=== PATIENT | female | born 1975 | race Two or more races ===

== ENCOUNTER 2020-04-08 03:29 | Emergency (ER) | payer SELFPAY ==
[~2020-04-08] VITALS: Ht 170.2 cm; Wt 54.4 kg
[2020-04-08 03:35] VITALS: BP 142/100
--- NOTE | 2020-04-08 03:35 | NUR ---
ED Nurse Note: Pt brought into ED from the street by SKYLER RA [id number] for behavioral complaint. Pt was found wandering in the street and per SKYLER, pt had a bystander call 911 for her. Pt has no medical complaint and denies pain, but states "I need help". She has hx of PTSD. Pt is aaox4, but not very cooperative with staff. She is ambulatory with steady gait. She denies drug or alcohol use tonight.
--- NOTE | 2020-04-08 03:35 | NUR ---
ED Nurse Note: Pt does not want to hurt herself or others. She is only requesting a ride home.
--- NOTE | 2020-04-08 03:36 | Emergency Room Report ---
History of Present Illness General Source: Patient Present Illness HPI This a 44-year-old female who claims she has no past medical history. She presents with chief complaint of weakness. Patient told the ambulance that she felt weak. She told me that she may have pneumonia because her lungs hurt. Patient was wearing a hospital paper shirt. I asked her where she got that from. She said that she was at a hospital in [place] yesterday. She claimed that she walked all the way from there to here. Now she wanted a ride to go to [place]. Patient denies any cough or congestion. No fever chills. She is not cooperative with questioning. Patient History Past Medical History: see triage record, old chart reviewed, psych hx Past Surgical History: none Pertinent Family History: none Social History: Denies: smoking Now: No Immunizations: other Reviewed Nursing Documentation: PMH: Agreed; PSxH: Agreed Review of Systems Eye: Denies: eye pain, blurred vision ENT: Denies: ear pain, nose congestion, throat swelling Respiratory: Denies: cough, shortness of breath Cardiovascular: Denies: chest pain, palpitations Gastrointestinal: Denies: abdominal pain, diarrhea, nausea, vomiting Musculoskeletal: Denies: back pain, joint pain Skin: Denies: rash Neurological: Denies: headache, numbness Endocrine: Denies: increased thirst, increased urine Hematologic/Lymphatic: Denies: easy bruising All Other Systems: negative except mentioned in HPI Physical Exam Vitals unremarkable Sp02 EP Interpretation: reviewed, normal General Appearance: well appearing, no apparent distress, alert Head: normocephalic, atraumatic Eyes: bilateral eye PERRL, bilateral eye EOMI ENT: hearing grossly normal, normal pharynx Neck: full range of motion, supple, no meningismus Respiratory: chest non-tender, lungs clear, normal breath sounds Cardiovascular #1: regular rate, rhythm, no murmur Gastrointestinal: normal bowel sounds, non tender, no mass, no organomegaly, no bruit, non-distended Musculoskeletal: back normal, normal range of motion, gait/station normal Psychiatric: mood/affect normal Medical Decision Making Diagnostic Impression: Primary Impression: Generalized weakness ER Course Patient presents with generalized weakness. I see no evidence of any issue. Lungs are clear. Oxygenation is 100% on room air. I see no evidence of pneumonia. She walking without any difficulty. She is eating drinking without any difficulty. She wanted a ride to [facility]. Explained to her that we cannot provide a personal ride to for her to go to [place]. Patient does not want to go to a long-term. Will discharge home. Status: unchanged Disposition: HOME, SELF-CARE Condition: Stable Additional Instructions: Follow-up with your doctor in 7 days. Return if symptoms worsen. Rogelio Godoy MD Apr 08, 2020 03:36
--- NOTE | 2020-04-08 03:38 | NUR ---
ED Nurse Note: TJ speaking with pt. She yelled "fk you doctor" to TJ. Pt is not being cooperative or complaint with care at this time.
--- NOTE | 2020-04-08 03:46 | NUR ---
ER DISCHARGE NOTE: Patient is cleared to be discharged per ERMD, pt is aox4, on room air, ERMD aware of pt HR and Ok'd to be DC. pt was given dc instructions. pt was able to verbalize understanding, pt id band removed. pt is able to ambulate with steady gait. pt took all belongings.
[2020-04-09] MEDS ORDERED: ZYPREXA5 MG ORAL (22:42)
== END 2020-04-08 03:55 | disposition home or self-care (01) ==
LOC: EDBD 03:29 → EMR 03:55
DX: R53.1 Weakness (principal)
CPT/HCPCS: 99282

== ENCOUNTER 2020-04-09 13:10 | Emergency (ER) | payer SELFPAY ==
[2020-04-09] VITALS (7 sets, daily range): BP systolic 106–137; BP diastolic 72–86
[~2020-04-09] VITALS: Ht 162.6 cm; Wt 68.0 kg
--- NOTE | 2020-04-09 13:10 | NUR ---
ED Nurse Note: Patient BIBA RA61 from a sidewalk due to behavioral complaint. Per EMS, pt was seen lying on the ground. Pt is awake and alert, uncooperative and talking non stop. Pt is resistive to care. Unable to obtain information from the pt. No SOB, on room air. Breathing even and unlabored. Pt placed on monitoring and evaluation advisor. ERPA at bedside.
[2020-04-09] MEDS ORDERED: DiphenhydrAMINE 50mg/ml Inj IM ONE (13:45)
[2020-04-09] MEDS ORDERED: Haloperidol 5mg/ml Inj ONE (13:45)
[2020-04-09] MEDS ORDERED: Haloperidol 5mg/ml Inj IM ONE (13:45)
[2020-04-09] MEDS ORDERED: LORazepam Inj 2mg/ml 1ml IM ONE (13:45)
--- NOTE | 2020-04-09 14:15 | NUR ---
ED Nurse Note: IV line established. Blood specimen collected and sent to lab.
[2020-04-09 14:28] LABS: BASOPHILS % (AUTO) 0.7 % (0.0-2.0); EOSINOPHILS % (AUTO) 0.3 % (0.0-3.0); HEMATOCRIT 35.2 % (37.0-47.0); HEMOGLOBIN 11.3 G/DL (12.0-16.0); LYMPHOCYTES % (AUTO) 9.8 % (20.0-45.0); MEAN CORPUSCULAR VOLUME 95 FL (80-99); NEUTROPHILS % (AUTO) 81.3 % (45.0-75.0); PLATELET COUNT 116 K/UL (150-450); RED BLOOD COUNT 3.69 M/UL (4.20-5.40); RED CELL DISTRIBUTION WIDTH 12.3 % (11.6-14.8); WHITE BLOOD COUNT 8.9 K/UL (4.8-10.8)
--- NOTE | 2020-04-09 14:28 | Emergency Room Report ---
History of Present Illness General Chief Complaint: Behavioral Complaint Source: EMS (Nadia Cordero) Present Illness HPI 29 YO female presents to the ED for ALOC. She is talking to herself only at a rapid pace. She has emotional lability. Tearful at times. She will not make eye contact no answer any questions. HPI and ROS are therefore limited. NO evidence of trauma. No open wounds or bleeding. Pt. was tachycardic in triage. (Nadia Cordero) Allergies: Coded Allergies: No Known Allergies (Unverified , 04/08/20) COVID-19 Screening Contact w/high risk pt: No Experienced COVID-19 symptoms?: No COVID-19 Testing performed IP COUNSEL: No (Nadia Cordero) Patient History Past Medical History: see triage record Past Surgical History: none Pertinent Family History: none Now: No Reviewed Nursing Documentation: PMH: Agreed; PSxH: Agreed (Nadia Cordero) Nursing Documentation-PMH Past Medical History: Deferred (Nadia Cordero) Review of Systems All Other Systems: limited (Nadia Cordero) Physical Exam Vital Signs Date Time Temp Pulse Resp B/P (MAP) Pulse Ox O2 Delivery O2 Flow Rate FiO2 04/09/20 13:04 98.1 112 16 137/84 (101) 98 Room Air Sp02 EP Interpretation: reviewed, normal General Appearance: no apparent distress, alert, GCS 15, non-toxic Head: normocephalic, atraumatic Eyes: bilateral eye normal inspection, bilateral eye PERRL ENT: hearing grossly normal, normal voice Neck: full range of motion Respiratory: chest non-tender, lungs clear, normal breath sounds, no wheezing, speaking full sentences Cardiovascular #1: regular rate, rhythm, normal capillary refill, tachycardia Gastrointestinal: normal bowel sounds, non tender, soft Musculoskeletal: back normal, normal range of motion, gait/station normal, non- tender Neurologic: alert, motor strength/tone normal, oriented x3, sensory intact, responsive, speech normal Psychiatric: judgement/insight normal Skin: no rash, normal color, other - no bruises, no hematomas, no open wounds or bleeding. (Nadia Cordero) Medical Decision Making PA Attestation Dr. Shaffer is my supervising Physician whom patient management has been discussed with. (Nadia Cordero) Diagnostic Impression: Primary Impression: Behavioral disorder ER Course 29 YO female presents to the ED for ALOC. She is talking to herself only at a rapid pace. She has emotional lability. Tearful at times. She will not make eye contact no answer any questions. HPI and ROS are therefore limited. NO evidence of trauma. No open wounds or bleeding. Pt. was tachycardic in triage. Pt is hyperactive, and has a very anxious and restless affect. Ddx considered but are not limited to OD, SI/HI, psychosis, UTI, intoxication just to name a few. Vital signs: are WNL, pt. is afebrile. H&PE are most consistent with behavioral/mental health issue ORDERS: -CBC, CMP: Unremarkable other than mild anemia and potassium of 3.4 -UA: negative for infection see results attached. -UDS: all negative -Salicylates and Acetaminophen - no acute intoxication. -Serum ETOH: no acute intoxication ED INTERVENTIONS: - Haldol 5mg IM -Ativan 2mg IM -Benadryl 50mg IM DISPOSITION: Pt. medically cleared for psychiatric evaluation and placement. PET Team Consult is ordered. Labs Test 04/09/20 14:15 04/09/20 14:58 White Blood Count 8.9 K/UL (4.8-10.8) Red Blood Count 3.69 M/UL (4.20-5.40) Hemoglobin 11.3 G/DL (12.0-16.0) Hematocrit 35.2 % (37.0-47.0) Mean Corpuscular Volume 95 FL (80-99) Mean Corpuscular Hemoglobin 30.5 PG (27.0-31.0) Mean Corpuscular Hemoglobin Concent 32.0 G/DL (32.0-36.0) Red Cell Distribution Width 12.3 % (11.6-14.8) Platelet Count 116 K/UL (150-450) Mean Platelet Volume 9.8 FL (6.5-10.1) Neutrophils (%) (Auto) 81.3 % (45.0-75.0) Lymphocytes (%) (Auto) 9.8 % (20.0-45.0) Monocytes (%) (Auto) 8.0 % (1.0-10.0) Eosinophils (%) (Auto) 0.3 % (0.0-3.0) Basophils (%) (Auto) 0.7 % (0.0-2.0) Sodium Level 142 MMOL/L (136-145) Potassium Level 3.4 MMOL/L (3.5-5.1) Chloride Level 105 MMOL/L (98-107) Carbon Dioxide Level 27 MMOL/L (21-32) Anion Gap 10 mmol/L (5-15) Blood Urea Nitrogen 17 mg/dL (7-18) Creatinine 0.7 MG/DL (0.55-1.30) Estimat Glomerular Filtration Rate > 60 mL/min (>60) Glucose Level 102 MG/DL (74-106) Calcium Level 9.0 MG/DL (8.5-10.1) Total Bilirubin 0.5 MG/DL (0.2-1.0) Aspartate Amino Transf (AST/SGOT) 62 U/L (15-37) Alanine Aminotransferase (ALT/SGPT) 47 U/L (12-78) Alkaline Phosphatase 54 U/L (46-116) Total Protein 7.3 G/DL (6.4-8.2) Albumin 3.8 G/DL (3.4-5.0) Globulin 3.5 g/dL Albumin/Globulin Ratio 1.1 (1.0-2.7) Salicylates Level 1.5 ug/mL (2.8-20) Acetaminophen Level < 2 MCG/ML (10-30) Serum Alcohol < 3 mg/dL Urine HCG, Qualitative Negative (NEGATIVE) Urine Opiates Screen Negative (NEGATIVE) Urine Barbiturates Screen Negative (NEGATIVE) Phencyclidine (PCP) Screen Negative (NEGATIVE) Urine Amphetamines Screen Negative (NEGATIVE) Urine Benzodiazepines Screen Negative (NEGATIVE) Urine Cocaine Screen Negative (NEGATIVE) Urine Marijuana (THC) Screen Negative (NEGATIVE) (Nadia Cordero) ER Course Patient was endorsed to me by Dr. Barros. Patient had been medicated earlier in the day and appears to be more appropriate in terms of behavior. Patient states that she feels better and wants to leave the hospital. She is not currently on a hold and does not appear to be responding to internal stimuli at this time. She is ambulatory without assistance and has a good plan for self- care. She does not appear to be danger to self or others. Does not appear to be holdable against her will at this time. Patient was advised outpatient psychiatric evaluation. This medical record is generated with [employer] medical technologist hematology software. There may be some medical technologist hematology discrepancies related to use of this software Labs Test 04/09/20 14:15 04/09/20 14:58 White Blood Count 8.9 K/UL (4.8-10.8) Red Blood Count 3.69 M/UL (4.20-5.40) Hemoglobin 11.3 G/DL (12.0-16.0) Hematocrit 35.2 % (37.0-47.0) Mean Corpuscular Volume 95 FL (80-99) Mean Corpuscular Hemoglobin 30.5 PG (27.0-31.0) Mean Corpuscular Hemoglobin Concent 32.0 G/DL (32.0-36.0) Red Cell Distribution Width 12.3 % (11.6-14.8) Platelet Count 116 K/UL (150-450) Mean Platelet Volume 9.8 FL (6.5-10.1) Neutrophils (%) (Auto) 81.3 % (45.0-75.0) Lymphocytes (%) (Auto) 9.8 % (20.0-45.0) Monocytes (%) (Auto) 8.0 % (1.0-10.0) Eosinophils (%) (Auto) 0.3 % (0.0-3.0) Basophils (%) (Auto) 0.7 % (0.0-2.0) Sodium Level 142 MMOL/L (136-145) Potassium Level 3.4 MMOL/L (3.5-5.1) Chloride Level 105 MMOL/L (98-107) Carbon Dioxide Level 27 MMOL/L (21-32) Anion Gap 10 mmol/L (5-15) Blood Urea Nitrogen 17 mg/dL (7-18) Creatinine 0.7 MG/DL (0.55-1.30) Estimat Glomerular Filtration Rate > 60 mL/min (>60) Glucose Level 102 MG/DL (74-106) Calcium Level 9.0 MG/DL (8.5-10.1) Total Bilirubin 0.5 MG/DL (0.2-1.0) Aspartate Amino Transf (AST/SGOT) 62 U/L (15-37) Alanine Aminotransferase (ALT/SGPT) 47 U/L (12-78) Alkaline Phosphatase 54 U/L (46-116) Total Protein 7.3 G/DL (6.4-8.2) Albumin 3.8 G/DL (3.4-5.0) Globulin 3.5 g/dL Albumin/Globulin Ratio 1.1 (1.0-2.7) Salicylates Level 1.5 ug/mL (2.8-20) Acetaminophen Level < 2 MCG/ML (10-30) Serum Alcohol < 3 mg/dL Urine HCG, Qualitative Negative (NEGATIVE) Urine Opiates Screen Negative (NEGATIVE) Urine Barbiturates Screen Negative (NEGATIVE) Phencyclidine (PCP) Screen Negative (NEGATIVE) Urine Amphetamines Screen Negative (NEGATIVE) Urine Benzodiazepines Screen Negative (NEGATIVE) Urine Cocaine Screen Negative (NEGATIVE) Urine Marijuana (THC) Screen Negative (NEGATIVE) (Ady Moseley MD) ER Course Patient signed out to me by ESTUARDO Choudhury pending reevaluation. Briefly, this a 44-year-old female brought in for evaluation of abnormal behavior. She was agitated, speaking rapidly, emotionally labile, responding to internal stimuli earlier. She was treated with Haldol Ativan, Benadryl and has been sleeping comfortably in the emergency department for the majority of my shift. She is now awake but remains groggy and will require further monitoring metabolization. Labs have returned within normal limits. Patient is not on a legal hold. She will be signed out to oncoming physician for reevaluation and ultimate disposition. (John Barros MD) EKG Diagnostic Results Rate: normal - 87 NSR Rhythm: NSR ST Segments: no acute changes Other Impression Prolonged QT , QTc of 493 ASA given to the pt in ED: No PA Scribe Text This Interpretation was scribed by ESTUARDO Cordero. (Nadia Cordero) Last Vital Signs Date Time Temp Pulse Resp B/P (MAP) Pulse Ox O2 Delivery O2 Flow Rate FiO2 04/09/20 13:10 112 16 Room Air 04/09/20 13:10 98.1 137/84 98 (Nadia Cordero) Status: improved (Ady Moseley MD) Disposition: HOME, SELF-CARE Condition: Stable Signed Out To: Dr. Barros (Nadia Cordero) Scripts Olanzapine* (ZYPREXA*) 5 Mg Tablet 5 MG ORAL DAILY, #14 TAB Prov: Ady Moseley MD 04/09/20 Referrals: NOT CHOSEN IPA/,REFERRING (PCP) Nadia Cordero Apr 09, 2020 14:28 Ady Moseley MD Apr 09, 2020 22:40 John Barros MD Apr 12, 2020 18:57
[2020-04-09 14:40] LABS: ANION GAP 10 mmol/L (5-15); BLOOD UREA NITROGEN 17 mg/dL (7-18); CARBON DIOXIDE 27 MMOL/L (21-32); CHLORIDE 105 MMOL/L (98-107); CREATININE 0.7 MG/DL (0.55-1.30); POTASSIUM 3.4 MMOL/L (3.5-5.1); SODIUM 142 MMOL/L (136-145)
[2020-04-09 14:44] LABS: ALANINE AMINOTRANSFERASE 47 U/L (12-78); ALBUMIN 3.8 G/DL (3.4-5.0); ALBUMIN/GLOBULIN RATIO 1.1 (1.0-2.7); ALKALINE PHOSPHATASE 54 U/L (46-116); ASPARTATE AMINO TRANSFERASE 62 U/L (15-37); BILIRUBIN,TOTAL 0.5 MG/DL (0.2-1.0)
--- NOTE | 2020-04-09 14:58 | NUR ---
ED Nurse Note: Urine sample obtained and sent to lab.
--- NOTE | 2020-04-09 17:00 | NUR ---
ED Nurse Note: Pt seen sleeping in bed. Breathing even and unlabored. Safety and comfort provided. Will cont to monitor.
--- NOTE | 2020-04-09 19:01 | NUR ---
ED Nurse Note: Report received from LESLIE CHEUNG. Patient asleep on bed. Patient not in anxious/distress state.
--- NOTE | 2020-04-09 19:01 | NUR ---
HAND-OFF: Report given to Bernardo RN.
--- NOTE | 2020-04-09 21:34 | NUR ---
ED Nurse Note: Food and drinks provided
--- NOTE | 2020-04-09 21:50 | NUR ---
ED Nurse Note: Patient used the restroom and requested to change into street clothes.
--- NOTE | 2020-04-09 22:30 | NUR ---
ED Nurse Note: Patient provided with new clothes to wear.
[2020-04-09] MEDS ORDERED: ZYPREXA5 MG ORAL (22:42)
--- NOTE | 2020-04-09 23:00 | NUR ---
ER DISCHARGE NOTE: Patient is cleared to be discharged per ERMD, pt is aox4, on room air, with stable vital signs. pt was given dc and prescription instructions, pt was able to verbalize understanding, pt id band and iv site removed without complications. pt is able to ambulate with steady gait. pt took all belongings. patient provided food, drinks, clothing before leaving. Patient verbalized going home to the address registered on the system
== END 2020-04-09 23:00 | disposition home or self-care (01) ==
LOC: EDBD 13:10 → EMR 13:31 → MERGE 13:31 → EMR 23:00
DX: R46.89 Other symptoms and signs involving appearance and behavior (principal); R00.0 Tachycardia, unspecified; D64.9 Anemia, unspecified
CPT/HCPCS: 36415; 80053; 80307; 81025; 85025; 96372; 99284; G0480; J1200; J1630